=== PATIENT | female | born 1980 | race Asian ===

== ENCOUNTER 2024-02-25 19:55 | Emergency (ER) | payer OTHER ==
[2024-02-25 20:44] VITALS: PULSE 113; O2SAT 98
[2024-02-26] MEDS ORDERED: CEPH500T MT (11:51)
== END 2024-02-25 23:38 | disposition left against medical advice (07) ==
LOC: ER 19:55
DX: R10.9 Unspecified abdominal pain (principal); Z53.21 Procedure and treatment not carried out due to patient leaving prior to being seen by health care provider

== ENCOUNTER 2024-02-26 10:46 | Emergency (ER) | payer OTHER, MEDICAID ==
[~2024-02-26] VITALS: Ht 157.5 cm; Wt 62.0 kg
[2024-02-26 10:48] VITALS: O2SAT 100
[2024-02-26 10:53] VITALS: BP 136/85; PULSE 88; RESP 18; TEMP 98.5; O2SAT 100
[2024-02-26 11:40] LABS: CLARITY URINE CLEAR (CLEAR); COLOR URINE YELLOW (YELLOW); GLUCOSE URINE TRACE (NEGATIVE); KETONES URINE NEGATIVE (NEGATIVE); NITRITE URINE NEGATIVE (NEGATIVE); OCCULT BLOOD URINE 3+ (NEGATIVE); PH URINE 6.5 (4.5-8.0); PROTEIN URINE 1+ (NEGATIVE); SPECIFIC GRAVITY URINE 1.006 (1.005-1.030); UROBILINOGEN URINE 0.2 E.U./dL (0.2-1.0)
[2024-02-26 11:41] LABS: LEUKOCYTE ESTERASE URINE 2+ (NEGATIVE)
[2024-02-26 11:50] LABS: BACTERIA URINE 1+; SQUAMOUS EPITHELIAL CELL URINE 3+ /lpf (RARE/1+); WBC URINE 25-50 /hpf (0-2); YEAST URINE NONE SEEN
[2024-02-26] MEDS ORDERED: CEPH500T MT (11:51)
[2024-02-26] MEDS: CEPHALEXIN 250MG CAPSULE PO NR (12:00)
== END 2024-02-26 12:04 | disposition home or self-care (01) ==
LOC: ER 10:46
DX: N39.0 Urinary tract infection, site not specified (principal); I10 Essential (primary) hypertension; E11.9 Type 2 diabetes mellitus without complications; Z98.890 Other specified postprocedural states
CPT/HCPCS: 81003; 81025; 99283

== ENCOUNTER 2024-07-08 16:50 | Emergency (ER) | payer OTHER ==
[~2024-07-08] VITALS: Ht 160 cm; Wt 68.0 kg
[~2024-07-08 16:50] MED LIST: CEPH500T MT
[2024-07-08 16:58] VITALS: O2SAT 99
[2024-07-08 17:10] VITALS: BP 119/79; PULSE 98; RESP 18; TEMP 36.9; O2SAT 99
[2024-07-08 17:59] LABS: BASOPHILS % 0.1 % (0.0-2.0); EOSINOPHILS % 1.5 % (0.0-5.0); HEMATOCRIT. 36.5 % (36.0-48.0); HEMOGLOBIN. 11.8 g/dL (12.0-16.0); LYMPHOCYTES % 36.4 % (20.0-50.0); MEAN CORPUSCULAR HEMOGLOBIN 26.1 pg (28.0-32.0); MEAN CORPUSCULAR HGB CONC 32.5 g/dL (31.0-37.0); MEAN CORPUSCULAR VOLUME 80.3 fL (81.0-99.0); MEAN PLATELET VOLUME 9.2 fl (7.4-10.4); MONOCYTES % 5.1 % (2.0-8.0); NEUTROPHILS % 56.9 % (40.0-76.0); PLATELET 308 x1000/uL (130-400); RED BLOOD CELL COUNT 4.54 mill/uL (4.2-5.4); RED CELL DISTRIBUTION WIDTH 13.6 % (11.6-14.6); WHITE BLOOD COUNT 9.9 x1000/uL (4.5-11.0)
[2024-07-08 18:11] LABS: CARBON DIOXIDE 25 mEq/L (21-32); CHLORIDE 106 mEq/L (98-107); POTASSIUM 3.7 mEq/L (3.5-5.1); SODIUM 138 mEq/L (136-145)
[2024-07-08 18:12] LABS: CALCIUM 9.6 mg/dL (8.7-10.4)
[2024-07-08 18:16] LABS: CREATININE 0.6 mg/dL (0.6-1.0); GLUCOSE 128 mg/dL (70-105)
[2024-07-08 18:17] LABS: ETHANOL BLOOD < 10 mg/dL (<10); HCG SCREEN NEGATIVE; UREA NITROGEN BLOOD 5 mg/dL (9-23)
[2024-07-08 18:18] LABS: ALANINE AMINOTRANSFERASE 21 IU/L (10-49); ALBUMIN 4.9 g/dL (3.2-4.8); ASPARTATE AMINOTRANSFERASE 21 IU/L (<34)
[2024-07-08 18:19] LABS: BILIRUBIN DIRECT 0.1 mg/dL (<=3.0); BILIRUBIN TOTAL 0.4 mg/dL (0.1-1.0); PROTEIN TOTAL 7.6 g/dL (6.0-8.3)
[2024-07-08 18:51] LABS: CLARITY URINE CLEAR (CLEAR); COLOR URINE YELLOW (YELLOW); GLUCOSE URINE NEGATIVE (NEGATIVE); KETONES URINE NEGATIVE (NEGATIVE); LEUKOCYTE ESTERASE URINE 2+ (NEGATIVE); NITRITE URINE NEGATIVE (NEGATIVE); OCCULT BLOOD URINE 2+ (NEGATIVE); PH URINE 6.5 (4.5-8.0); PROTEIN URINE 1+ (NEGATIVE); SPECIFIC GRAVITY URINE 1.008 (1.005-1.030); UROBILINOGEN URINE 0.2 E.U./dL (0.2-1.0)
[2024-07-08 19:17] LABS: BACTERIA URINE 1+; RBC URINE 15-25 /hpf (0-2); SQUAMOUS EPITHELIAL CELL URINE 1+ /lpf (RARE/1+); WBC URINE 15-25 /hpf (0-2)
[2024-07-08] MEDS ORDERED: NITR100C MT (20:19)
[2024-07-09] MEDS ORDERED: PYR200 MT (22:07)
[2024-07-09] MEDS ORDERED: ONDA-239 PO (22:07)
== END 2024-07-08 22:20 | disposition home or self-care (01) ==
LOC: ER 16:50
DX: N39.0 Urinary tract infection, site not specified (principal); E11.9 Type 2 diabetes mellitus without complications; I10 Essential (primary) hypertension; Z98.890 Other specified postprocedural states
CPT/HCPCS: 36415; 80048; 80076; 80320; 81003; 84703; 85025; 99283; G0480

== ENCOUNTER 2024-07-09 21:06 | Emergency (ER) | payer OTHER ==
[~2024-07-09] VITALS: Ht 152.4 cm; Wt 58.0 kg
[~2024-07-09 21:06] MED LIST changes: +NITR100C MT
[2024-07-09 21:29] VITALS: O2SAT 100
[2024-07-09 21:31] VITALS: BP 138/88; PULSE 100; RESP 16; TEMP 36.7; O2SAT 99
[2024-07-09] MEDS ORDERED: PYR200 MT (22:07)
[2024-07-09] MEDS ORDERED: ONDA-239 PO (22:07)
== END 2024-07-09 22:56 | disposition home or self-care (01) ==
LOC: ER 21:06
DX: N39.0 Urinary tract infection, site not specified (principal); E11.9 Type 2 diabetes mellitus without complications; I10 Essential (primary) hypertension
CPT/HCPCS: 99282; 99283